=== PATIENT | female | born 2000 | race Caucasian/White ===

== ENCOUNTER 2021-01-13 15:14 | Outpatient (REF) | payer OTHER, SELFPAY ==
[2021-01-13 16:14] LABS: COVID-19 Test Negative (Negative)
== END 2021-01-13 15:15 | disposition home or self-care (01) ==
LOC: HO.LAB 15:14
PROVIDERS: Visit Provider Internal Medicine
DX: Z20.822 Contact with and (suspected) exposure to COVID-19 (principal)
CPT/HCPCS: 36415; 87635; C9803

== ENCOUNTER 2023-08-19 06:11 | Emergency (ER) | payer OTHER, SELFPAY ==
--- NOTE | 2023-08-19 | ECG_ITS ---
Test Reason : CHEST PAIN Blood Pressure : / mmHG Vent. Rate : 107 BPM Atrial Rate : 107 BPM P-R Int : 156 ms QRS Dur : 082 ms QT Int : 312 ms P-R-T Axes : 058 058 030 degrees QTc Int : 416 ms Sinus tachycardia Possible Left atrial enlargement Borderline ECG No previous ECGs available Referred By: Generic ED Physician Electronically Signed By:MORGAN RAM MD
[2023-08-19 06:16] VITALS: BP 120/85; PULSE 117; RESP 20; TEMP 37.3; O2SAT 95; BMI 36.6
== END 2023-08-19 07:40 | disposition left against medical advice (07) ==
PROVIDERS: Emergency Provider Emergency Medicine
DX: R07.89 Other chest pain (principal); R06.02 Shortness of breath; R05.9 Cough, unspecified
CPT/HCPCS: 93005; 99283

== ENCOUNTER → 2023-08-19 06:34 | Outpatient (BNV) | payer OTHER, SELFPAY | PROVIDERS: Emergency Provider Emergency Medicine; Visit Provider Internal Medicine Cardiovascular Disease | DX: R00.0 Tachycardia, unspecified (principal) | CPT/HCPCS: 93010 ==